=== PATIENT | female | born 1965 ===

== ENCOUNTER 2017-06-11 18:00 | Emergency (ER) | payer OTHER ==
[2017-06-11 18:05] VITALS: TEMP 97.5; O2SAT 100
[2017-06-11] MEDS ORDERED: Lidocaine 2% Inj (20ml) INFIL ONE (18:23)
[2017-06-11] MEDS ORDERED: Tmp-Smz 800 mg-160 mg DS Tab PO STA (18:24)
[2017-06-11] MEDS ORDERED: Lidocaine 1% Inj (20ml) ONE (18:27)
[2017-06-11] MEDS ORDERED: Tmp-Smz 800 mg-160 mg DS Tab ONE (19:02)
--- NOTE | 2017-06-11 19:12 | C.PDOC ---
History Of Present Illness 51 year old female presents to the ED with complaints of a pimple to her left buttocks for two months that has become larger and more painful over the last week. Patient denies fever. Time Seen by Provider: 06/11/17 18:10 Chief Complaint (Nursing): Abnormal Skin Integrity History Per: Patient History/Exam Limitations: no limitations Onset/Duration Of Symptoms: Persistent (2 months ), Worse Since (1 week) Current Symptoms Are (Timing): Still Present Location Of Injury: Left: Buttock Quality Of Symptoms: Painful, Swollen. denies: Itching, Draining Recent travel outside of the [place]: No Past Medical History Reviewed: Historical Data, Nursing Documentation, Vital Signs Vital Signs: Last Vital Signs Temp 97.5 F L 06/11/17 18:03 Pulse 72 06/11/17 19:15 Resp 18 06/11/17 19:15 BP 140/89 06/11/17 19:15 Pulse Ox 100 06/11/17 21:08 Family History: States: Unknown Family Hx - Social History Hx Alcohol Use: No Hx Substance Use: No - Immunization History Hx Tetanus Toxoid Vaccination: No Hx Influenza Vaccination: No Hx Pneumococcal Vaccination: No Review Of Systems Constitutional: Negative for: Fever Skin: Positive for: Other (painful and swollen pimple to left buttock ) Physical Exam - Physical Exam Appears: Non-toxic, No Acute Distress Skin: Warm, Dry, Other (3 cm surrounding erythema, fluctance, tenderness, and swelling ) Head: Atraumatic, Normacephalic Eye(s): bilateral: Normal Inspection, PERRL, EOMI Oral Mucosa: Moist Neck: Supple Extremity: Normal ROM, No Tenderness, No Swelling Neurological/Psych: Oriented x3, Normal Motor, Normal Sensation Gait: Steady ED Course And Treatment O2 Sat by Pulse Oximetry: 100 (RA) Pulse Ox Interpretation: Normal Progress Note: Patient was given Keflex and Motrin. Following incision and drainage, bactrim was applied. - Incision & Drainage Of Abscess Anesthesia: Lidocaine 1% Prep Used: Sterile Water, Betadine Procedure: Incised W/Scalpel Blade#: (11), Drained Pus, Irrigated Cavity W/ Saline, Probed To Break Up Loculations, Packed W/Gauze Disposition - Disposition Referrals: [facility] [Outside] Disposition: HOME/ ROUTINE Disposition Time: 19:10 Condition: GOOD Additional Instructions: Follow up with the medical doctor within 1-2 days. Return if worsened. Prescriptions: Cephalexin [Keflex] 500 mg PO BID #14 capsule Ibuprofen [Motrin] 600 mg PO TID #21 tab Sulfamethoxazole/Trimethoprim [Bactrim DS 800 mg-160 mg] 1 tab PO BID #14 tab Instructions: Abscess (ED) Forms: [employer] (North Korean) Print Language: CITIZEN OF [place] - Clinical Impression Clinical Impression: Abscess - PA / PHYSICS TECHNICIAN / Resident Statement MD/DO has reviewed & agrees with the documentation as recorded. - Scribe Statement The provider has reviewed the documentation as recorded by the Scribe Sima Garcia All medical record entries made by the Brielle were at my direction and personally dictated by me. I have reviewed the chart and agree that the record accurately reflects my personal performance of the history, physical exam, medical decision making, and the department course for this patient. I have also personally directed, reviewed, and agree with the discharge instructions and disposition.
[2017-06-11 19:16] VITALS: BP 140/89; PULSE 72; RESP 18
== END 2017-06-11 19:24 | disposition home or self-care (01) ==
LOC: C.ER 18:00
DX: L02.31 Cutaneous abscess of buttock (principal)

== ENCOUNTER 2017-06-13 11:18 | Emergency (ER) | payer OTHER ==
[2017-06-13 11:33] VITALS: BMI 21.2
[2017-06-13 11:37] VITALS: TEMP 97.8
--- NOTE | 2017-06-13 12:05 | C.PDOC ---
History Of Present Illness 51 year old female presents to the for evaluation for wound check. Patient had an Incision and Drainage performed two days ago in [facility] ED to the right buttocks. She has been compliant with her antibiotics and notes pain has improved. Patient denies fever. Time Seen by Provider: 06/13/17 11:28 Chief Complaint (Nursing): Wound Check History Per: Patient History/Exam Limitations: no limitations Onset/Duration Of Symptoms: Days Ago (2 days ) Current Symptoms Are (Timing): Better Location Of Injury: Right: Buttock Quality Of Symptoms: denies: Itching, Swollen Recent travel outside of the [place]: No Additional History Per: Prior Records Past Medical History Reviewed: Historical Data, Nursing Documentation, Vital Signs Vital Signs: Last Vital Signs Temp 97.8 F 06/13/17 11:33 Pulse 72 06/13/17 12:08 Resp 18 06/13/17 12:08 BP 114/68 06/13/17 12:08 Pulse Ox 100 06/13/17 16:38 Family History: States: Unknown Family Hx - Social History Hx Alcohol Use: No Hx Substance Use: No - Immunization History Hx Tetanus Toxoid Vaccination: No Hx Influenza Vaccination: No Hx Pneumococcal Vaccination: No Review Of Systems Constitutional: Negative for: Fever Skin: Positive for: Other (abscess ) Physical Exam - Physical Exam Appears: Non-toxic, No Acute Distress Skin: Warm, Dry, Other (healing area where incision and drainage was performed to the right buttocks. No signs of infection, packing in place. ) Cardiovascular: Rhythm Regular, No Murmur Respiratory: No Rales, No Rhonchi, No Wheezing, Other (clear to auscultation bilaterally ) Extremity: Normal ROM, No Tenderness Neurological/Psych: Oriented x3 ED Course And Treatment O2 Sat by Pulse Oximetry: 100 (RA) Progress Note: Packing was removed and wound was redressed in a sterile fashion with gauze, by VIBHA Gan. Disposition - Disposition Disposition: HOME/ ROUTINE Disposition Time: 11:57 Condition: GOOD Instructions: Acute Wound Care (ED) Forms: [employer] (Indonesian) Print Language: MOZAMBICAN - Clinical Impression Clinical Impression: Wound check, abscess, Abscess packing removal - PA / CIRCLE BEVELER / Resident Statement MD/DO has reviewed & agrees with the documentation as recorded. - Scribe Statement The provider has reviewed the documentation as recorded by the Purnimanarda Garcia All medical record entries made by the Brielle were at my direction and personally dictated by me. I have reviewed the chart and agree that the record accurately reflects my personal performance of the history, physical exam, medical decision making, and the department course for this patient. I have also personally directed, reviewed, and agree with the discharge instructions and disposition.
[2017-06-13 12:12] VITALS: BP 114/68; PULSE 72; RESP 18
[2017-06-13 12:40] VITALS: O2SAT 100
== END 2017-06-13 12:10 | disposition home or self-care (01) ==
LOC: C.ER 11:18
DX: Z48.00 Encounter for change or removal of nonsurgical wound dressing (principal)

== ENCOUNTER 2017-10-09 16:37 | Emergency (ER) | payer OTHER ==
[2017-10-09 16:38] VITALS: BMI 21.2
[2017-10-09 17:57] VITALS: BP 128/88; PULSE 65; TEMP 97.8; O2SAT 100
--- NOTE | 2017-10-09 20:43 | C.PDOC ---
History Of Present Illness 51yo female, presents to ER with complaints of pain to left neck worse with movement for the past 3 days. She states she has not taken any medication for pain at home. She also is complaining a mild headache to her posterior left head. She denies any dizziness, weakness, numbness or trauma. She also denies any chest pain. Patient has no other complaints. Time Seen by Provider: 10/09/17 19:23 Chief Complaint (Nursing): Headache History Per: Patient History/Exam Limitations: no limitations Onset/Duration Of Symptoms: Days (3) Associated Symptoms: denies: Nausea, Vomiting Past Medical History Reviewed: Historical Data, Nursing Documentation, Vital Signs Vital Signs: Last Vital Signs Temp 97.8 F 10/09/17 17:55 Pulse 65 10/09/17 17:55 Resp 20 10/09/17 20:48 BP 128/88 10/09/17 17:55 Pulse Ox 100 10/09/17 21:59 - Medical History PMH: No Chronic Diseases Surgical History: No Surg Hx Family History: States: No Known Family Hx, Unknown Family Hx - Social History Hx Alcohol Use: No Hx Substance Use: No - Immunization History Hx Tetanus Toxoid Vaccination: No Hx Influenza Vaccination: No Hx Pneumococcal Vaccination: No Review Of Systems Constitutional: Negative for: Fever, Chills Cardiovascular: Negative for: Chest Pain Musculoskeletal: Positive for: Neck Pain (left sided neck pain) Neurological: Positive for: Headache (left sided posterior headache). Negative for: Weakness, Numbness, Dizziness Physical Exam - Physical Exam Appears: Non-toxic, No Acute Distress Skin: Normal Color, Warm, Dry Head: Atraumatic, Normacephalic Eye(s): bilateral: Normal Inspection, PERRL, EOMI Nose: Normal Neck: Decreased ROM (decreased lateral rotation due to pain), No Midline Cervical Tenderness, No Paracervical Tenderness, No Step Off Deformity, Supple Chest: Symmetrical, No Tenderness Cardiovascular: Rhythm Regular Respiratory: Normal Breath Sounds, No Wheezing Extremity: Normal ROM, No Tenderness (shoulder) Neurological/Psych: Oriented x3, Normal Speech, Normal Cranial Nerves, Normal Motor, Normal Sensation Gait: Steady ED Course And Treatment O2 Sat by Pulse Oximetry: 100 (RA) Pulse Ox Interpretation: Normal Progress Note: Patient given Toradol and Valium with relief of symptoms. Patient to be discharged home with Rx for Motrin and Robaxin and instructed to follow up with PCP. Return precautions were discussed and understood by pt Disposition Counseled Patient/Family Regarding: Diagnosis, Need For Followup, Rx Given - Disposition Referrals: [facility] [Outside] Disposition: HOME/ ROUTINE Disposition Time: 20:40 Condition: STABLE Additional Instructions: Azucena las medicinas Sigue en clinica Regresa si dolor se empeor o worse Prescriptions: Ibuprofen [Motrin] 600 mg PO Q6H #24 tab Methocarbamol [Robaxin-750] 750 mg PO BID #14 tablet Instructions: Torticollis (DC) Forms: [employer] (Greenlandic) Print Language: MALAY - Clinical Impression Clinical Impression: Torticollis, unspecified - PA / CLERK SECRETARY / Resident Statement MD/DO has reviewed & agrees with the documentation as recorded. - Scribe Statement The provider has reviewed the documentation as recorded by the Scribe (Isabel Rogers) Provider Attestation: All medical record entries made by the Scribe were at my direction and personally dictated by me. I have reviewed the chart and agree that the record accurately reflects my personal performance of the history, physical exam, medical decision making, and the department course for this patient. I have also personally directed, reviewed, and agree with the discharge instructions and disposition.
[2017-10-09 20:49] VITALS: RESP 20
== END 2017-10-09 20:48 | disposition home or self-care (01) ==
LOC: C.ER 16:37
DX: M43.6 Torticollis (principal)
CPT/HCPCS: 96372; 99284; J1885